=== PATIENT | female | born 1995 ===

== ENCOUNTER 2018-04-17 22:50 | Emergency (ER) | payer SELFPAY ==
[2018-04-17 23:30] VITALS: BMI 27.2
[2018-04-18 01:08] LABS: SQUAMOUS EPITHIAL 3 /hpf (0-5); URINE BACTERIA OCC (<OCC); URINE BILIRUBIN NEGATIVE (NEGATIVE); URINE BLOOD SMALL (NEGATIVE); URINE CLARITY TURBID (Clear); URINE COLOR YELLOW (YELLOW); URINE GLUCOSE (UA) NEG (Normal); URINE LEUKOCYTE ESTERASE LARGE Leu/uL (Negative); URINE PROTEIN 100 mg/dL (NEGATIVE); URINE UROBILINOGEN 0.2-1.0 mg/dL (0.2-1.0)
[2018-04-18 05:45] VITALS: BP 121/64; PULSE 111; RESP 16; TEMP 98.4; O2SAT 99
== END 2018-04-18 01:43 | disposition home or self-care (01) ==
LOC: H.EROB2 22:50
DX: O23.42 Unspecified infection of urinary tract in pregnancy, second trimester (principal); O26.92 Pregnancy related conditions, unspecified, second trimester; R10.2 Pelvic and perineal pain; Z3A.24 24 weeks gestation of pregnancy